=== PATIENT | male | born 1980 | race Caucasian/White ===

== ENCOUNTER 2021-05-13 08:34 | Outpatient (REF) | payer BC, SELFPAY | END 2021-05-13 08:35 | disposition home or self-care (01) | LOC: HO.HMGCLDS 08:34 | PROVIDERS: PCP Internal Medicine; Visit Provider Internal Medicine | DX: Z20.822 Contact with and (suspected) exposure to COVID-19 (principal) | CPT/HCPCS: C9803; U0003; U0005 ==

== ENCOUNTER 2022-10-03 10:00 | Outpatient (REF) | payer BC, SELFPAY ==
--- NOTE | ~2022-10-03 | XR_ITS ---
EXAMINATION: XR RIBS, RIGHT CLINICAL INFORMATION: Thoracic injury COMPARISON: Chest x-ray of October 24, 2019 TECHNIQUE: PA chest and 3 views of the right ribs. FINDINGS: PA film of the chest demonstrates region of scarring or atelectasis at the right base. There are multiple old healed left rib fractures. No pneumothorax or significant pleural effusion is identified. Heart normal size. No evidence of pulmonary edema. There are nondisplaced fractures seen involving the right sixth, seventh, and eighth ribs. XR/XR ribs RT min 3V w CXR1V IMPRESSION: Nondisplaced fractures of the right sixth, seventh, and eighth ribs without pneumothorax or significant pleural effusion. 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
== END 2022-10-03 10:01 | disposition home or self-care (01) ==
LOC: HO.HMGCX 10:00
PROVIDERS: PCP Internal Medicine; Visit Provider Internal Medicine
DX: S29.9XXA Unspecified injury of thorax, initial encounter (principal); X58.XXXA Exposure to other specified factors, initial encounter; Y93.9 Activity, unspecified; Y92.9 Unspecified place or not applicable; Y99.9 Unspecified external cause status
CPT/HCPCS: 71101

== ENCOUNTER 2022-11-11 11:10 | Outpatient (REF) | payer BC, SELFPAY ==
--- NOTE | ~2022-11-11 | XR_ITS ---
EXAMINATION: XR RIBS, RIGHT CLINICAL INFORMATION: Injury COMPARISON: Previous x-ray September 2022 TECHNIQUE: 3 views of the right ribs and one view of the chest were obtained. FINDINGS: Lungs are clear. No consolidation, pneumothorax, or pleural effusion. The cardiomediastinal silhouette and pulmonary vasculature are normal. There are right fourth through seventh rib fractures and adjacent pleural thickening. There may be nondisplaced fracture of the right anterior eighth rib and adjacent periosteal reaction. There are old left posterior lateral rib fractures, the left fifth through seventh ribs, that appear unchanged. XR/XR ribs RT min 3V w CXR1V IMPRESSION: Multiple healing right-sided rib fractures and adjacent pleural thickening. Old left-sided rib fractures. No evidence for acute disease in the chest.
== END 2022-11-11 11:11 | disposition home or self-care (01) ==
LOC: HO.HMGCX 11:10
PROVIDERS: PCP Internal Medicine; Visit Provider Internal Medicine
DX: S29.9XXA Unspecified injury of thorax, initial encounter (principal); X58.XXXA Exposure to other specified factors, initial encounter; Y93.9 Activity, unspecified; Y92.9 Unspecified place or not applicable; Y99.9 Unspecified external cause status
CPT/HCPCS: 71101